=== PATIENT | female | born 1950 | race African-American/Black ===

== ENCOUNTER 2016-12-25 09:49 | Inpatient (IN) | payer OTHER ==
[2016-12-25] MEDS ORDERED: ONDANSETRON 4 MG/2 ML VIAL IVPUSH ONE (10:29)
[2016-12-25] MEDS ORDERED: morphine CARPU-JECT 2 MG/1 ML DISP.SYRIN IVPUSH ONE ×2 (10:29→16:48)
--- NOTE | 2016-12-25 10:38 | PDOC ---
History of Present Illness - General Chief Complaint: Pain, Acute Stated Complaint: ABDOMINAL PAIN Time Seen by Provider: 12/25/16 09:59 History Source: Patient Exam Limitations: No Limitations - History of Present Illness Travel History: No Initial Comments: 12/25/16 10:31 66-year-old female presents the ED with worsening periumbilical pain which she describes a pressure with cramping associated with diarrhea without nausea vomiting fever or chills. Patient denies history of GI disorders such as diverticulitis, IBS or colitis. Patient denies recent travel, recent change in diet, recent change in medications. Patient has no urinary complaints this time. Patient has no complaints of chest pain or shortness of breath. Timing/Duration: reports: getting worse Quality: reports: moderate, cramping, stabbing Abdominal Pain Onset Location: reports: periumbilical Pain Radiation: reports: no radiation Activities at Onset: reports: none Aggravating Factors: improves with: None Alleviating Factors: improves with: None Past History - Travel Traveled outside of the country in the last 30 days: No Close contact w/someone who was outside of country & ill: No - Past Medical History Allergies/Adverse Reactions: Allergies Allergy/AdvReac Type Severity Reaction Status Date / Time Penicillins Allergy Verified 12/25/16 09:59 strawberry Allergy Verified 12/25/16 09:59 tomato Allergy Verified 12/25/16 09:59 Home Medications: Ambulatory Orders Aclidinium [place] [Tudorza -] 1 inh PO BID 04/29/15 Albuterol Sulfate Inhaler - [Ventolin Hfa Inhaler -] 1 - 2 inh PO QID PRN Celecoxib 200 mg PO DAILY 04/29/15 Escitalopram Oxalate [Lexapro -] 10 mg PO DAILY 04/29/15 Gabapentin 600 mg PO TID 04/29/15 Loratadine 10 mg PO DAILY 04/29/15 Oxycodone HCl/Acetaminophen [Percocet 5/325 -] 1 tab PO Q8H PRN 04/29/15 Quetiapine Fumarate "Xr" [Seroquel Xr -] 50 mg PO DAILY 04/29/15 Roflumilast [Daliresp] 500 mcg PO DAILY 04/29/15 Budesonide/Formeterol Fumarate [SYMBICORT 80/4.5mcg -] 1 inh PO BID 12/25/16 Duloxetine HCl 30 mg PO HS 12/25/16 Fluticasone/Vilanterol [Breo Ellipta 100-25 Mcg INH] 1 each IH DAILY 12/25/16 Hydrochlorothiazide 25 mg PO AM 12/25/16 Anemia: Yes Asthma: Yes Cancer: Yes (right breast) COPD: Yes HTN: Yes Suicide Attempt (Hx): No - Psycho/Social/Smoking Cessation Hx Anxiety: No Suicidal Ideation: No Smoking Status: Yes Smoking History: Current every day smoker Have you smoked in the past 12 months: Yes Number of Cigarettes Smoked Daily: 20 Information on smoking cessation initiated: No 'Breaking Loose' booklet given: 04/29/15 Hx Alcohol Use: No Drug/Substance Use Hx: No Substance Use Type: None Hx Substance Use Treatment: No Patient Lives Alone: No 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 No: Constipated : No: Symptoms Reported Musculoskeletal: No: Symptoms Reported Integumentary: No: Symptoms Reported Neurological: No: Symptoms reported *Physical Exam - Vital Signs Last Vital Signs Temp Pulse Resp BP Pulse Ox 97.7 F 91 H 24 111/64 100 12/25/16 10:02 12/25/16 10:02 12/25/16 10:02 12/25/16 10:02 12/25/16 10:02 - Physical Exam General Appearance: Yes: Nourished, Appropriately Dressed. No: Apparent Distress HEENT: negative: Pale Conjunctivae Respiratory/Chest: positive: Lungs Clear, Normal Breath Sounds. negative: Respiratory Distress, Accessory Muscle Use Cardiovascular: positive: Regular Rhythm, Regular Rate. negative: Murmur Gastrointestinal/Abdominal: positive: Normal Bowel Sounds, Soft, Guarding, Tenderness (periumbilical and epigastric). negative: Distended, Rebound, Mass Extremity: positive: Normal Capillary Refill. negative: Pedal Edema Integumentary: positive: Normal Color, Warm, Moist Neurologic: positive: Normal Mood/Affect, Motor Strength 5/5 ED Treatment Course - LABORATORY CBC & Chemistry Diagram: 12/25/16 10:40 12/25/16 10:40 - RADIOLOGY Radiology Studies Ordered: Category Date Time Status ABDOMEN & PELVIS CT W/O CONTR [CT] Stat CT Scan 12/25/16 10:29 Ordered Medical Decision Making - Medical Decision Making 12/25/16 10:45 Patient worsening periumbilical pain and was tender to the epigastric and periumbilical region with mild right upper quadrant tenderness. Patient ordered for labs, urine, EKG, CAT scan, Antiemetics and analgesics. Patient concerning for diverticulitis or inflammatory/infectious process. 12/25/16 11:17 Laboratory Tests 12/25/16 12/25/16 12/25/16 10:40 10:40 10:40 WBC 17.1 H D Hgb 13.4 D Hct 39.1 Neutrophils % 44.8 Lymphocytes % 46.7 H Sodium 138 Potassium 3.2 L BUN 11 D Creatinine 1.2 H Urine pH 8.5 H Urine Protein Trace H Urine Urobilinogen >=8.0 e.u./dl H 12/25/16 11:41 Patient ordered for second lactic acid, IV fluid bolus, potassium replacement IV , Levaquin and Flagyl IV. Patient in for abdominal CT. Patient states feeling better after receiving pain mso4. 12/25/16 16:50 No evidence of diverticulitis or colitis noted. There is a possible not definitively ill-defined hypodense region in the left lobe of the liver versus artifact which can be evaluated by sonogram. Patient meets criteria for sepsis and will be admitted. Call placed to Dr. Coleman 12/25/16 16:[address] Hammer who will accept patient to [facility] inpatient. *DC/Admit/Observation/Transfer Diagnosis at time of Disposition: Hypokalemia Sepsis Qualifiers: Sepsis type: sepsis due to unspecified organism Qualified Code(s): A41.9 - Sepsis, unspecified organism Abdominal pain Qualifiers: Abdominal location: periumbilical Qualified Code(s): R10.33 - Periumbilical pain - Discharge Dispostion Admit: Yes
[2016-12-25] MEDS ORDERED: morphine CARPU-JECT 10 MG/1 ML DISP.SYRIN ONE ×2 (10:45→16:58)
[2016-12-25 10:52] LABS: PH,URINE 8.5 (5.0-8.0); URINE APPEARANCE CLEAR; URINE BILIRUBIN NEGATIVE (NEGATIVE); URINE BLOOD NEGATIVE (NEGATIVE); URINE COLOR YELLOW; URINE GLUCOSE (UA) NEGATIVE (NEGATIVE); URINE KETONE NEGATIVE (NEGATIVE); URINE LEUK ESTERASE NEGATIVE (NEGATIVE); URINE NITRITE NEGATIVE (NEGATIVE); URINE PROTEIN TRACE (NEGATIVE); URINE UROBILINOGEN >=8.0 E.U./dl mg/dL (0.2-1.0)
[2016-12-25 10:53] LABS: BASOPHIL 0.9 % (0-2.0); EOSINOPHIL 1.6 % (0-4.5); MCH 32.1 pg (25.7-33.7); MCHC 34.1 g/dl (32.0-36.0); MEAN CELL VOLUME 94.2 fl (80-96); NEUTROPHILS 44.8 % (42.8-82.8); PLATELET COUNT 299 K/MM3 (134-434); RDW 15.2 % (11.6-15.6); WHITE BLOOD COUNT 17.1 K/mm3 (4.0-10.0)
[2016-12-25 11:10] LABS: ALBUMIN 3.2 g/dl (3.4-5.0); ANION GAP 9 (8-16); CO2 28 mmol/L (21-32); CREATININE 1.2 mg/dL (0.55-1.02); GLUCOSE,RANDOM 104 mg/dL (74-106); SGOT/AST 23 U/L (15-37); SGPT/ALT 21 U/L (12-78)
[2016-12-25 11:12] LABS: ALK PHOS 110 U/L (45-117); BILIRUBIN,TOTAL 0.6 mg/dL (0.2-1.0); TOT PROT 7.6 g/dl (6.4-8.2)
[2016-12-25] MEDS ORDERED: SODIUM CHLORIDE 1,000 ML IV STA (11:26)
[2016-12-25] MEDS ORDERED: METRONIDAZOLE 500 MG PREMIXED 100 ML IVPB ONE ×2 (11:28→11:32)
[2016-12-25] MEDS ORDERED: LEVOFLOXACIN 750 MG IVPB 150 ML IVPB ONE ×2 (11:28→11:32)
[2016-12-25] MEDS ORDERED: KCL 10 MEQ IVPB 200 ML IVPB ONE (11:29)
[2016-12-25] MEDS: KCL 10 MEQ IVPB 100 ML IVPB SCH ×2 (11:45→14:47)
--- NOTE | 2016-12-25 17:19 | EKG ---
Test Reason : Blood Pressure : / mmHG Vent. Rate : 094 BPM Atrial Rate : 094 BPM P-R Int : 148 ms QRS Dur : 096 ms QT Int : 394 ms P-R-T Axes : 074 007 032 degrees QTc Int : 492 ms NORMAL SINUS RHYTHM NONSPECIFIC T WAVE ABNORMALITY PROLONGED QT ABNORMAL ECG WHEN COMPARED WITH ECG OF 20-SEP-2014 09:20, NO SIGNIFICANT CHANGE WAS FOUND Confirmed by NIKKI PEDRAZA MD ([id number]) on 12/25/2016 5:18:59 PM Referred By: Confirmed By:NIKKI PEDRAZA MD
[2016-12-25 22:53] VITALS: BMI 49.0
[2016-12-26] MEDS ORDERED: ONDANSETRON 4 MG/2 ML VIAL IVPB PRN (02:06)
[2016-12-26] MEDS ORDERED: morphine CARPU-JECT 4 MG/1 ML DISP.SYRIN IVPB PRN (02:07)
[2016-12-26] MEDS ORDERED: morphine CARPU-JECT 2 MG/1 ML DISP.SYRIN IVPB PRN (02:10)
[2016-12-26] MEDS: DEXTROSE 5%-0.45% SALINE 1,000 ML IV SCH ×2 (02:35→20:50)
[2016-12-26] MEDS: GABAPENTIN 300 MG CAPSULE (FP) PO SCH ×3 (06:51→21:58)
[2016-12-26] MEDS: HYDROCHLOROTHIAZIDE 25 MG TABLET (FP) PO SCH (06:51)
[2016-12-26 07:36] LABS: BASOPHIL 0.7 % (0-2.0); EOSINOPHIL 2.7 % (0-4.5); MCHC 33.7 g/dl (32.0-36.0); MEAN CELL VOLUME 94.7 fl (80-96); MEAN PLT VOLUME 7.6 fl (7.5-11.1); NEUTROPHILS 50.1 % (42.8-82.8); PLATELET COUNT 249 K/MM3 (134-434); RDW 14.8 % (11.6-15.6)
[2016-12-26 08:00] LABS: ALBUMIN 2.6 g/dl (3.4-5.0); ANION GAP 7 (8-16); BILIRUBIN,TOTAL 0.5 mg/dL (0.2-1.0); CALCIUM 9.1 mg/dL (8.5-10.1); CO2 29 mmol/L (21-32); CREATININE 1.1 mg/dL (0.55-1.02); GLUCOSE,RANDOM 113 mg/dL (74-106); SGOT/AST 21 U/L (15-37); SGPT/ALT 18 U/L (12-78); TOT PROT 6.3 g/dl (6.4-8.2)
[2016-12-26 08:01] LABS: ALK PHOS 90 U/L (45-117)
[2016-12-26] MEDS ORDERED: PT OWN MED DRAWER 7, Y5N ONE ×3 (08:54→20:41)
[2016-12-26] MEDS: morphine CARPU-JECT 4 MG/1 ML DISP.SYRIN IVPB PRN (09:50)
[2016-12-26] MEDS: HEPARIN NA (PORCINE) 5,000 UNITS/ML 1ML VIAL SQ SCH ×2 (09:51→21:58)
[2016-12-26] MEDS: LORATADINE 10 MG TABLET PO SCH (09:51)
[2016-12-26] MEDS: ACLIDINIUM BROMIDE 400 MCG/INH AERO.POWD IH SCH ×2 (10:15→21:59)
[2016-12-26] MEDS: METRONIDAZOLE 500 MG PREMIXED 100 ML IVPB SCH ×2 (10:16→20:49)
[2016-12-26] MEDS: BUDESONIDE/FORMETEROL FUMARATE 80/4.5 mcg INHALER IH SCH ×2 (11:15→21:59)
[2016-12-26] MEDS: LEVOFLOXACIN 500 MG IVPB 100 ML IVPB SCH (11:16)
--- NOTE | 2016-12-26 14:02 | CONSULT ---
Consult Consult Specialty:: infectious diseases Referred by:: Reason for Consultation:: uti - History of Present Illness Chief Complaint: abd pain and rt flank pain History of Present Illness: 66-year-old female presents the ED with worsening periumbilical pain which she describes a pressure with cramping associated with diarrhea without nausea vomiting fever or chills. 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 Pulmonary: Yes: Asthma, COPD, Other (Emphysema) ...: No - Past Surgical History Past Surgical History: Yes: Hysterectomy, Mastectomy - Alcohol/Substance Use Hx Alcohol Use: No History of Substance Use: reports: None - Smoking History Smoking history: Current every day smoker Have you smoked in the past 12 months: Yes Aproximately how many cigarettes per day: 20 - Social History ADL: Independent Occupation: Disabled History of Recent Travel: No Home Medications - Allergies Allergies/Adverse Reactions: Allergies Allergy/AdvReac Type Severity Reaction Status Date / Time Penicillins Allergy Verified 12/25/16 09:59 strawberry Allergy Verified 12/25/16 09:59 tomato Allergy Verified 12/25/16 09:59 - Home Medications Home Medications: Ambulatory Orders Aclidinium [place] [Tudorza -] 1 inh PO BID 04/29/15 Albuterol Sulfate Inhaler - [Ventolin Hfa Inhaler -] 1 - 2 inh PO QID PRN Celecoxib 200 mg PO DAILY 04/29/15 Escitalopram Oxalate [Lexapro -] 10 mg PO DAILY 04/29/15 Gabapentin 600 mg PO TID 04/29/15 Loratadine 10 mg PO DAILY 04/29/15 Oxycodone HCl/Acetaminophen [Percocet 5/325 -] 1 tab PO Q8H PRN 04/29/15 Quetiapine Fumarate "Xr" [Seroquel Xr -] 50 mg PO DAILY 04/29/15 Roflumilast [Daliresp] 500 mcg PO DAILY 04/29/15 Budesonide/Formeterol Fumarate [SYMBICORT 80/4.5mcg -] 1 inh PO BID 12/25/16 Duloxetine HCl 30 mg PO HS 12/25/16 Fluticasone/Vilanterol [Breo Ellipta 100-25 Mcg INH] 1 each IH DAILY 12/25/16 Hydrochlorothiazide 25 mg PO AM 12/25/16 Family Disease History - Family Disease History Family Disease History: Heart Disease: Mother (HTN, CVA age 78) Review of Systems - Review of Systems Constitutional: reports: No Symptoms Eyes: reports: No Symptoms HENT: reports: No Symptoms Neck: reports: No Symptoms Cardiovascular: reports: No Symptoms Respiratory: reports: No Symptoms Gastrointestinal: reports: Abdominal Pain Genitourinary: reports: No Symptoms Integumentary: reports: No Symptoms Neurological: reports: No Symptoms Endocrine: reports: No Symptoms Hematology/Lymphatic: reports: No Symptoms Psychiatric: reports: No Symptoms Physical Exam Vital Signs: Vital Signs Temperature 97.9 F 12/26/16 10:00 Pulse Rate 85 12/26/16 10:00 Respiratory Rate 20 12/26/16 10:00 Blood Pressure 113/70 12/26/16 10:00 O2 Sat by Pulse Oximetry (%) 98 12/26/16 10:00 Constitutional: Yes: Well Nourished, Calm, Obese (morbid obesity) Eyes: Yes: Conjunctiva Clear HENT: Yes: Atraumatic, Normocephalic Neck: Yes: Supple Cardiovascular: Yes: Regular Rate and Rhythm Respiratory: Yes: Regular, Poor Air Entry (bases) Gastrointestinal: Yes: Normal Bowel Sounds, Soft, Tenderness (epigastric region) Musculoskeletal: Yes: WNL Extremities: Yes: WNL Neurological: Yes: Alert, Oriented Psychiatric: Yes: Alert, Oriented Labs: CBC, BMP 12/26/16 06:00 12/26/16 06:00 Imaging - Results Cat Scan: Report Reviewed, Image Reviewed Assessment/Plan after looking at the ct scan there is some shadow in the liver patients work up also shows uti patient has pain on the right side chances could be something like collection looking at the picture i am going to order sonogram of the abdomen uti abd pain obesity plan u/s of the abd will start on ceftriaxone
[2016-12-26] MEDS ORDERED: CEFTRIAXONE 1 GM in DEXTROSE 5%-WATER - 50 ML IVPB SCH (14:15)
--- NOTE | 2016-12-26 15:10 | CON.GI ---
Consult Consult Specialty:: gastroenterology - History of Present Illness History of Present Illness: 66y/o F with PMH of morbid obesity, cervical and brest cancer was admitted because of epigastric pain, diarrhea,leukocytosis nausea and vomitng. Diarrhea started 1 year ago, no travel history, no recent antibiotic use, non bloody associated with crampy abdominal pain. Urinalysis is normal. Catscan was reviewed, she was noted to have a dilated gallbladder otherwise was normal. 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 Pulmonary: Yes: Asthma, COPD, Other (Emphysema) ...: No - Past Surgical History Past Surgical History: Yes: Hysterectomy, Mastectomy - Alcohol/Substance Use Hx Alcohol Use: No History of Substance Use: reports: None - Smoking History Smoking history: Current every day smoker Have you smoked in the past 12 months: Yes Aproximately how many cigarettes per day: 20 - Social History ADL: Independent Occupation: Disabled History of Recent Travel: No Home Medications - Allergies Allergies/Adverse Reactions: Allergies Allergy/AdvReac Type Severity Reaction Status Date / Time Penicillins Allergy Verified 12/25/16 09:59 strawberry Allergy Verified 12/25/16 09:59 tomato Allergy Verified 12/25/16 09:59 - Home Medications Home Medications: Ambulatory Orders Aclidinium [place] [Tudorza -] 1 inh PO BID 04/29/15 Albuterol Sulfate Inhaler - [Ventolin Hfa Inhaler -] 1 - 2 inh PO QID PRN Celecoxib 200 mg PO DAILY 04/29/15 Escitalopram Oxalate [Lexapro -] 10 mg PO DAILY 04/29/15 Gabapentin 600 mg PO TID 04/29/15 Loratadine 10 mg PO DAILY 04/29/15 Oxycodone HCl/Acetaminophen [Percocet 5/325 -] 1 tab PO Q8H PRN 04/29/15 Quetiapine Fumarate "Xr" [Seroquel Xr -] 50 mg PO DAILY 04/29/15 Roflumilast [Daliresp] 500 mcg PO DAILY 04/29/15 Budesonide/Formeterol Fumarate [SYMBICORT 80/4.5mcg -] 1 inh PO BID 12/25/16 Duloxetine HCl 30 mg PO HS 12/25/16 Fluticasone/Vilanterol [Breo Ellipta 100-25 Mcg INH] 1 each IH DAILY 12/25/16 Hydrochlorothiazide 25 mg PO AM 12/25/16 Family Disease History - Family Disease History Family History: Denies (colon and gastric cancer) Family Disease History: Heart Disease: Mother (HTN, CVA age 78) Review of Systems - Review of Systems Constitutional: denies: Loss of Appetite Eyes: denies: Blurred Vision HENT: reports: Difficult Swallowing Neck: denies: Decreased ROM, Tenderness Respiratory: denies: SOB, SOB on Exertion Gastrointestinal: reports: Abdominal Pain (--epigastric), Diarrhea, Nausea, Vomiting. denies: Constipation, Dysphagia, Indigestion, Melena, Vomiting Blood Physical Exam-GI Vital Signs: Vital Signs Temperature 97.9 F 12/26/16 14:10 Pulse Rate 87 12/26/16 14:10 Respiratory Rate 20 12/26/16 14:10 Blood Pressure 121/73 12/26/16 14:10 O2 Sat by Pulse Oximetry (%) 98 12/26/16 10:00 Constitutional: Yes: Obese Eyes: Yes: Conjunctiva Clear HENT: Yes: Atraumatic Neck: Yes: Supple Cardiovascular: Yes: Regular Rate and Rhythm Respiratory: Yes: CTA Bilaterally Gastrointestinal Inspection: Yes: Distention ...Auscultate: Yes: Normoactive Bowel Sounds ...Palpate: Yes: Soft, Tenderness, Epigastium. No: Firm/Rigid, Guarding, Hepatomegaly, Mass, Pulsatile Mass, Splenomegaly, Tenderness ...Percussion: Yes: Tympanitic Labs: CBC, BMP 12/26/16 06:00 12/26/16 06:00 Home Medications Medication Instructions Recorded Aclidinium [place] [Tudorza -] 1 inh PO BID 04/29/15 Albuterol Sulfate Inhaler - 1 - 2 inh PO QID PRN 04/29/15 [Ventolin Hfa Inhaler -] Celecoxib 200 mg PO DAILY 04/29/15 Escitalopram Oxalate [Lexapro -] 10 mg PO DAILY 04/29/15 Gabapentin 600 mg PO TID 04/29/15 Loratadine 10 mg PO DAILY 04/29/15 Oxycodone HCl/Acetaminophen 1 tab PO Q8H PRN 04/29/15 [Percocet 5/325 -] Quetiapine Fumarate "Xr" [Seroquel 50 mg PO DAILY 04/29/15 Xr -] Roflumilast [Daliresp] 500 mcg PO DAILY 04/29/15 Budesonide/Formeterol Fumarate 1 inh PO BID 12/25/16 [SYMBICORT 80/4.5mcg -] Duloxetine HCl 30 mg PO HS 12/25/16 Fluticasone/Vilanterol [Breo 1 each IH DAILY 12/25/16 Ellipta 100-25 Mcg INH] Hydrochlorothiazide 25 mg PO AM 12/25/16 Problem List - Problems (1) Epigastric abdominal pain Assessment/Plan: r/o Pepetic ulcer disease secondary to NSAID use vs cholecystitis R>IV Protonix and Reglan HIDA scan continue antibiotics EGD as an out patient, she was made aware to follow-up Code(s): R10.13 - EPIGASTRIC PAIN (2) Diarrhea Assessment/Plan: possibly infectious R> stool analysis colonoscopy as an outpatient, she was made aware to follow-up Code(s): R19.7 - DIARRHEA, UNSPECIFIED
--- NOTE | 2016-12-26 16:02 | HP ---
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 Pulmonary: Yes: Asthma, COPD, Other (Emphysema) ...: No - Past Surgical History Past Surgical History: Yes: Hysterectomy, Mastectomy - Smoking History Smoking history: Current every day smoker Have you smoked in the past 12 months: Yes Aproximately how many cigarettes per day: 20 - Alcohol/Substance Use Hx Alcohol Use: No History of Substance Use: reports: None - Social History ADL: Independent Occupation: Disabled History of Recent Travel: No Home Medications - Allergies Allergies/Adverse Reactions: Allergies Allergy/AdvReac Type Severity Reaction Status Date / Time Penicillins Allergy Verified 12/25/16 09:59 strawberry Allergy Verified 12/25/16 09:59 tomato Allergy Verified 12/25/16 09:59 - Home Medications Home Medications: Ambulatory Orders Aclidinium [place] [Tudorza -] 1 inh PO BID 04/29/15 Albuterol Sulfate Inhaler - [Ventolin Hfa Inhaler -] 1 - 2 inh PO QID PRN Celecoxib 200 mg PO DAILY 04/29/15 Escitalopram Oxalate [Lexapro -] 10 mg PO DAILY 04/29/15 Gabapentin 600 mg PO TID 04/29/15 Loratadine 10 mg PO DAILY 04/29/15 Oxycodone HCl/Acetaminophen [Percocet 5/325 -] 1 tab PO Q8H PRN 04/29/15 Quetiapine Fumarate "Xr" [Seroquel Xr -] 50 mg PO DAILY 04/29/15 Roflumilast [Daliresp] 500 mcg PO DAILY 04/29/15 Budesonide/Formeterol Fumarate [SYMBICORT 80/4.5mcg -] 1 inh PO BID 12/25/16 Duloxetine HCl 30 mg PO HS 12/25/16 Fluticasone/Vilanterol [Breo Ellipta 100-25 Mcg INH] 1 each IH DAILY 12/25/16 Hydrochlorothiazide 25 mg PO AM 12/25/16 Family Disease History - Family Disease History Family Disease History: Heart Disease: Mother (HTN, CVA age 78) Physical Examination Vital Signs: Vital Signs Temperature 97.9 F 12/26/16 14:10 Pulse Rate 87 12/26/16 14:10 Respiratory Rate 20 12/26/16 14:10 Blood Pressure 121/73 12/26/16 14:10 O2 Sat by Pulse Oximetry (%) 98 12/26/16 10:00 Labs: CBC, BMP 12/26/16 06:00 12/26/16 06:00
[2016-12-26] MEDS: METOCLOPRAMIDE HCL INJECTION 10 MG/2 ML VIAL IVPB SCH (17:49)
[2016-12-26] MEDS: AZTREONAM 1 GM in DEXTROSE 5%-WATER - 50 ML IVPB SCH (18:21)
[2016-12-26] MEDS ORDERED: PANTOPRAZOLE SODIUM 40 MG VIAL ONE (20:41)
[2016-12-26] MEDS ORDERED: SODIUM CHLORIDE 100 ML IVPB ONE (20:41)
[2016-12-26] MEDS ORDERED: CYCLOBENZAPRINE HCL 10 MG TABLET (FP) PO PRN (21:40)
[2016-12-26] MEDS: DULoxetine HCL 30 MG CAPSULE.DR (FP) PO SCH (21:58)
[2016-12-26] MEDS: PANTOPRAZOLE SODIUM 40 MG in SODIUM CHLORIDE 100 ML IVPB SCH (21:59)
[2016-12-26] MEDS ORDERED: NAPROXEN 500 MG TABLET (FP) PO PRN (22:00)
[2016-12-27] MEDS: METOCLOPRAMIDE HCL INJECTION 10 MG/2 ML VIAL IVPB SCH ×4 (00:42→23:49)
[2016-12-27 08:24] LABS: BASOPHIL 1.2 % (0-2.0); EOSINOPHIL 2.5 % (0-4.5); MCH 31.9 pg (25.7-33.7); MCHC 33.7 g/dl (32.0-36.0); MEAN CELL VOLUME 94.6 fl (80-96); MEAN PLT VOLUME 7.5 fl (7.5-11.1); NEUTROPHILS 43.7 % (42.8-82.8); PLATELET COUNT 251 K/MM3 (134-434); WHITE BLOOD COUNT 10.4 K/mm3 (4.0-10.0)
[2016-12-27] MEDS: morphine CARPU-JECT 4 MG/1 ML DISP.SYRIN IVPB PRN ×2 (08:52→20:51)
[2016-12-27 09:22] LABS: ALBUMIN 2.8 g/dl (3.4-5.0); ALK PHOS 87 U/L (45-117); ANION GAP 10 (8-16); BILIRUBIN,TOTAL 0.7 mg/dL (0.2-1.0); CALCIUM 9.4 mg/dL (8.5-10.1); CO2 28 mmol/L (21-32); CREATININE 1.2 mg/dL (0.55-1.02); GLUCOSE,RANDOM 110 mg/dL (74-106); SGOT/AST 28 U/L (15-37); SGPT/ALT 19 U/L (12-78); TOT PROT 6.6 g/dl (6.4-8.2)
[2016-12-27] MEDS ORDERED: SODIUM CHLORIDE 100 ML IVPB ONE ×2 (09:36→23:03)
[2016-12-27] MEDS ORDERED: PANTOPRAZOLE SODIUM 40 MG VIAL ONE ×2 (09:36→23:03)
[2016-12-27] MEDS: AZTREONAM 1 GM in DEXTROSE 5%-WATER - 50 ML IVPB SCH ×2 (09:50→21:10)
[2016-12-27] MEDS: METRONIDAZOLE 500 MG PREMIXED 100 ML IVPB SCH ×2 (12:40→19:48)
[2016-12-27] MEDS: HEPARIN NA (PORCINE) 5,000 UNITS/ML 1ML VIAL SQ SCH ×2 (12:54→21:14)
[2016-12-27] MEDS: LORATADINE 10 MG TABLET PO SCH (12:54)
[2016-12-27] MEDS: BUDESONIDE/FORMETEROL FUMARATE 80/4.5 mcg INHALER IH SCH ×2 (12:55→21:18)
[2016-12-27] MEDS: ACLIDINIUM BROMIDE 400 MCG/INH AERO.POWD IH SCH ×2 (12:58→21:15)
--- NOTE | 2016-12-27 15:41 | PN ---
Progress Note, Physician History of Present Illness: feels better had imaging studies done currently feels better - Current Medication List Current Medications: Active Medications Aclidinium [place] (Tudorza -) 1 puff IH BID [facility] Last Admin: 12/27/16 12:58 Dose: 1 puff Budesonide/Formoterol Fumarate (Symbicort 80/4.5mcg -) 1 puff IH BID [facility] Last Admin: 12/27/16 12:55 Dose: Not Given Cyclobenzaprine HCl (Flexeril -) 10 mg PO Q8H PRN Last Admin: 12/26/16 21:56 Dose: 10 mg Duloxetine HCl (Cymbalta -) 30 mg PO HS [facility] Last Admin: 12/26/16 21:58 Dose: Not Given Gabapentin (Neurontin -) 600 mg PO TID [facility] Last Admin: 12/26/16 21:58 Dose: 600 mg Heparin Sodium (Porcine) (Heparin -) 5,000 unit SQ BID [facility] Last Admin: 12/27/16 12:54 Dose: 5,000 unit Hydrochlorothiazide (Hctz -) 25 mg PO AM [facility] Last Admin: 12/26/16 06:51 Dose: 25 mg Dextrose/Sodium Chloride (D5-1/2ns -) 1,000 mls @ 75 mls/hr IV ASDIR [facility] Last Admin: 12/26/16 20:50 Dose: 75 mls/hr Metronidazole (Flagyl 500mg Premixed Ivpb -) 100 mls @ 100 mls/hr IVPB Q8H-IV [facility] Last Admin: 12/27/16 12:40 Dose: 100 mls/hr Levofloxacin (Levaquin 500 Mg Premixed Ivpb -) 100 mls @ 100 mls/hr IVPB DAILY [facility] Last Admin: 12/26/16 11:16 Dose: 100 mls/hr Pantoprazole Sodium 40 mg/ (Sodium Chloride) 100 mls @ 200 mls/hr IVPB BID [facility] Last Admin: 12/26/16 21:59 Dose: 200 mls/hr Aztreonam 1 gm/ Dextrose 50 mls @ 100 mls/hr IVPB Q8H-IV [facility] Last Admin: 12/26/16 18:21 Dose: 100 mls/hr Loratadine (Claritin -) 10 mg PO DAILY [facility] Last Admin: 12/27/16 12:54 Dose: 10 mg Metoclopramide HCl (Reglan Injection -) 10 mg IVPB Q8H [facility] Last Admin: 12/27/16 15:16 Dose: Not Given Morphine Sulfate (Morphine Injection -) 4 mg IVPB Q6H PRN Last Admin: 12/27/16 08:52 Dose: 4 mg Ondansetron HCl (Zofran Injection) 4 mg IVPB Q6H PRN PRN Reason: NAUSEA Quetiapine Fumarate (Seroquel Xr -) 50 mg PO DAILY [facility] Last Admin: 12/27/16 12:55 Dose: Not Given - Objective Vital Signs: Vital Signs Temperature 98.3 F 12/27/16 13:28 Pulse Rate 102 H 12/27/16 13:28 Respiratory Rate 20 12/27/16 13:28 Blood Pressure 134/81 12/27/16 13:28 O2 Sat by Pulse Oximetry (%) 95 12/27/16 10:00 Constitutional: Yes: No Distress, Calm, Obese Respiratory: Yes: Regular, CTA Bilaterally Gastrointestinal: Yes: Normal Bowel Sounds, Soft Musculoskeletal: Yes: WNL Extremities: Yes: WNL Neurological: Yes: Alert, Oriented Psychiatric: Yes: Alert, Oriented Labs: CBC, BMP 12/27/16 08:00 12/27/16 08:00 Assessment/Plan uti abd pain obesity plan continue current mgmt rest as per priamry team
[2016-12-27] MEDS ORDERED: POTASSIUM CHLORIDE TABS 20 MEQ TABLET.ER (FP) PO ONE (18:18)
[2016-12-27] MEDS: LEVOFLOXACIN 500 MG IVPB 100 ML IVPB SCH (19:41)
[2016-12-27] MEDS: PANTOPRAZOLE SODIUM 40 MG in SODIUM CHLORIDE 100 ML IVPB SCH ×2 (19:49→23:09)
[2016-12-27] MEDS: GABAPENTIN 300 MG CAPSULE (FP) PO SCH ×2 (19:51→21:14)
[2016-12-27] MEDS ORDERED: PT OWN MED DRAWER 7, Y5N ONE ×3 (19:52→20:41)
[2016-12-27] MEDS: DULoxetine HCL 30 MG CAPSULE.DR (FP) PO SCH (21:18)
--- NOTE | 2016-12-27 23:39 | PN ---
Progress Note, Physician - Current Medication List Current Medications: Active Medications Aclidinium [place] (Tudorza -) 1 puff IH BID [facility] Last Admin: 12/27/16 21:15 Dose: 1 puff Budesonide/Formoterol Fumarate (Symbicort 80/4.5mcg -) 1 puff IH BID [facility] Last Admin: 12/27/16 21:18 Dose: Not Given Cyclobenzaprine HCl (Flexeril -) 10 mg PO Q8H PRN Last Admin: 12/26/16 21:56 Dose: 10 mg Duloxetine HCl (Cymbalta -) 30 mg PO HS [facility] Last Admin: 12/27/16 21:18 Dose: Not Given Gabapentin (Neurontin -) 600 mg PO TID [facility] Last Admin: 12/27/16 21:14 Dose: 600 mg Heparin Sodium (Porcine) (Heparin -) 5,000 unit SQ BID [facility] Last Admin: 12/27/16 21:14 Dose: 5,000 unit Hydrochlorothiazide (Hctz -) 25 mg PO AM [facility] Last Admin: 12/26/16 06:51 Dose: 25 mg Dextrose/Sodium Chloride (D5-1/2ns -) 1,000 mls @ 75 mls/hr IV ASDIR [facility] Last Admin: 12/26/16 20:50 Dose: 75 mls/hr Metronidazole (Flagyl 500mg Premixed Ivpb -) 100 mls @ 100 mls/hr IVPB Q8H-IV [facility] Last Admin: 12/27/16 19:48 Dose: Not Given Levofloxacin (Levaquin 500 Mg Premixed Ivpb -) 100 mls @ 100 mls/hr IVPB DAILY [facility] Last Admin: 12/27/16 19:41 Dose: 100 mls/hr Pantoprazole Sodium 40 mg/ (Sodium Chloride) 100 mls @ 200 mls/hr IVPB BID [facility] Last Admin: 12/27/16 23:09 Dose: 200 mls/hr Aztreonam 1 gm/ Dextrose 50 mls @ 100 mls/hr IVPB Q8H-IV [facility] Last Admin: 12/27/16 21:10 Dose: 100 mls/hr Loratadine (Claritin -) 10 mg PO DAILY [facility] Last Admin: 12/27/16 12:54 Dose: 10 mg Metoclopramide HCl (Reglan Injection -) 10 mg IVPB Q8H [facility] Last Admin: 12/27/16 15:16 Dose: Not Given Morphine Sulfate (Morphine Injection -) 4 mg IVPB Q6H PRN Last Admin: 12/27/16 20:51 Dose: 4 mg Ondansetron HCl (Zofran Injection) 4 mg IVPB Q6H PRN PRN Reason: NAUSEA Quetiapine Fumarate (Seroquel Xr -) 50 mg PO DAILY [facility] Last Admin: 12/27/16 12:55 Dose: Not Given - Objective Vital Signs: Vital Signs Temperature 98.0 F 12/27/16 18:02 Pulse Rate 107 H 12/27/16 18:02 Respiratory Rate 18 12/27/16 18:02 Blood Pressure 110/78 12/27/16 18:02 O2 Sat by Pulse Oximetry (%) 95 12/27/16 10:00 Constitutional: Yes: Well Nourished Neck: Yes: WNL, Supple Cardiovascular: Yes: WNL, Regular Rate and Rhythm Respiratory: Yes: Diminished Gastrointestinal: Yes: Normal Bowel Sounds, Soft, Abdomen, Obese Labs: CBC, BMP 12/27/16 08:00 12/27/16 08:00 Problem List - Problems (1) Sepsis Assessment/Plan: Cont IV azactam/levaquin/flagyl Monitor cultures Urine culture (+) for proteus As per ID WBC normal Code(s): A41.9 - SEPSIS, UNSPECIFIED ORGANISM Qualifiers: Sepsis type: sepsis due to unspecified organism Qualified Code(s): A41.9 - Sepsis, unspecified organism (2) Shoulder pain Assessment/Plan: ?xray shoulder showed rotator cuff tear Ortho consult PT eval ?STR on dc Code(s): M25.519 - PAIN IN UNSPECIFIED SHOULDER (3) Hip pain Assessment/Plan: ?AVN on xray Ortho consult Code(s): M25.559 - PAIN IN UNSPECIFIED HIP (4) COPD (chronic obstructive pulmonary disease) Assessment/Plan: Cont inhalers Code(s): J44.9 - CHRONIC OBSTRUCTIVE PULMONARY DISEASE, UNSPECIFIED (5) Renal insufficiency Code(s): N28.9 - DISORDER OF KIDNEY AND URETER, UNSPECIFIED (6) HTN (hypertension) Assessment/Plan: BP stable Cont hctz Code(s): I10 - ESSENTIAL (PRIMARY) HYPERTENSION (7) Peripheral neuropathy Assessment/Plan: Cont neurontin/flexeril Code(s): G62.9 - POLYNEUROPATHY, UNSPECIFIED (8) Morbid obesity Code(s): E66.01 - MORBID (SEVERE) OBESITY DUE TO EXCESS CALORIES (9) Depression Code(s): F32.9 - MAJOR DEPRESSIVE DISORDER, SINGLE EPISODE, UNSPECIFIED
[2016-12-28] MEDS ORDERED: PT OWN MED DRAWER 7, Y5N ONE (01:48)
[2016-12-28] MEDS: AZTREONAM 1 GM in DEXTROSE 5%-WATER - 50 ML IVPB SCH ×4 (01:50→11:55)
[2016-12-28] MEDS: morphine CARPU-JECT 4 MG/1 ML DISP.SYRIN IVPB PRN (02:50)
[2016-12-28] MEDS: METRONIDAZOLE 500 MG PREMIXED 100 ML IVPB SCH ×2 (03:41→10:42)
[2016-12-28] MEDS: DEXTROSE 5%-0.45% SALINE 1,000 ML IV SCH ×2 (04:06→05:28)
[2016-12-28] MEDS: HYDROCHLOROTHIAZIDE 25 MG TABLET (FP) PO SCH (06:19)
[2016-12-28] MEDS: GABAPENTIN 300 MG CAPSULE (FP) PO SCH ×2 (06:19→14:55)
[2016-12-28] MEDS: METOCLOPRAMIDE HCL INJECTION 10 MG/2 ML VIAL IVPB SCH ×2 (08:55→14:56)
[2016-12-28] MEDS ORDERED: SODIUM CHLORIDE 100 ML IVPB ONE (09:11)
[2016-12-28] MEDS ORDERED: PANTOPRAZOLE SODIUM 40 MG VIAL ONE (09:11)
[2016-12-28] MEDS: LEVOFLOXACIN 500 MG IVPB 100 ML IVPB SCH (09:13)
[2016-12-28] MEDS: ACLIDINIUM BROMIDE 400 MCG/INH AERO.POWD IH SCH (09:15)
[2016-12-28] MEDS: HEPARIN NA (PORCINE) 5,000 UNITS/ML 1ML VIAL SQ SCH (09:16)
[2016-12-28] MEDS: LORATADINE 10 MG TABLET PO SCH (09:16)
[2016-12-28] MEDS: BUDESONIDE/FORMETEROL FUMARATE 80/4.5 mcg INHALER IH SCH (09:17)
[2016-12-28] MEDS: PANTOPRAZOLE SODIUM 40 MG in SODIUM CHLORIDE 100 ML IVPB SCH (12:39)
--- NOTE | 2016-12-28 14:59 | PN ---
Progress Note, Physician History of Present Illness: no new issues patient stable no issues - Current Medication List Current Medications: Active Medications Aclidinium [place] (Tudorza -) 1 puff IH BID [facility] Last Admin: 12/28/16 09:15 Dose: 1 puff Budesonide/Formoterol Fumarate (Symbicort 80/4.5mcg -) 1 puff IH BID [facility] Last Admin: 12/28/16 09:17 Dose: Not Given Cyclobenzaprine HCl (Flexeril -) 10 mg PO Q8H PRN Last Admin: 12/26/16 21:56 Dose: 10 mg Duloxetine HCl (Cymbalta -) 30 mg PO HS [facility] Last Admin: 12/27/16 21:18 Dose: Not Given Gabapentin (Neurontin -) 600 mg PO TID [facility] Last Admin: 12/28/16 06:19 Dose: 600 mg Heparin Sodium (Porcine) (Heparin -) 5,000 unit SQ BID [facility] Last Admin: 12/28/16 09:16 Dose: 5,000 unit Hydrochlorothiazide (Hctz -) 25 mg PO AM [facility] Last Admin: 12/28/16 06:19 Dose: 25 mg Dextrose/Sodium Chloride (D5-1/2ns -) 1,000 mls @ 75 mls/hr IV ASDIR [facility] Last Admin: 12/28/16 05:28 Dose: 75 mls/hr Metronidazole (Flagyl 500mg Premixed Ivpb -) 100 mls @ 100 mls/hr IVPB Q8H-IV [facility] Last Admin: 12/28/16 10:42 Dose: 100 mls/hr Levofloxacin (Levaquin 500 Mg Premixed Ivpb -) 100 mls @ 100 mls/hr IVPB DAILY [facility] Last Admin: 12/28/16 09:13 Dose: 100 mls/hr Pantoprazole Sodium 40 mg/ (Sodium Chloride) 100 mls @ 200 mls/hr IVPB BID [facility] Last Admin: 12/28/16 12:39 Dose: 200 mls/hr Aztreonam 1 gm/ Dextrose 50 mls @ 100 mls/hr IVPB Q8H-IV [facility] Last Admin: 12/28/16 11:55 Dose: 100 mls/hr Loratadine (Claritin -) 10 mg PO DAILY [facility] Last Admin: 12/28/16 09:16 Dose: 10 mg Metoclopramide HCl (Reglan Injection -) 10 mg IVPB Q8H [facility] Last Admin: 12/28/16 08:55 Dose: Not Given Morphine Sulfate (Morphine Injection -) 4 mg IVPB Q6H PRN Last Admin: 12/28/16 02:50 Dose: 4 mg Ondansetron HCl (Zofran Injection) 4 mg IVPB Q6H PRN PRN Reason: NAUSEA Quetiapine Fumarate (Seroquel Xr -) 50 mg PO DAILY [facility] Last Admin: 12/28/16 09:17 Dose: Not Given - Objective Vital Signs: Vital Signs Temperature 98.6 F 12/28/16 14:15 Pulse Rate 99 H 12/28/16 14:15 Respiratory Rate 20 12/28/16 14:15 Blood Pressure 112/65 12/28/16 14:15 O2 Sat by Pulse Oximetry (%) 96 12/28/16 10:00 Constitutional: Yes: No Distress, Calm, Obese Cardiovascular: Yes: Regular Rate and Rhythm Respiratory: Yes: Regular, CTA Bilaterally Gastrointestinal: Yes: Normal Bowel Sounds, Soft Musculoskeletal: Yes: WNL Extremities: Yes: WNL Neurological: Yes: Alert, Oriented Psychiatric: Yes: Alert, Oriented Labs: CBC, BMP 12/27/16 08:00 12/27/16 08:00 Assessment/Plan uti abd pain obesity plan cx result noted patient tolerating orally will change abx to oral give levaquin for another 3 days rest as per gi
[2016-12-28] MEDS ORDERED: LEVOFLOXACIN 750 MG TABLET PO SCH (15:15)
[2016-12-28] MEDS ORDERED: LEVOFLOXACIN 500 MG, LEVOFLOXACIN 250 MG PO SCH (15:30)
[2016-12-28 17:09] VITALS: BP 121/72; PULSE 108; TEMP 97.9
[2016-12-28] MEDS ORDERED: metroNIDAZOLE 250 MG TABLET PO SCH (22:00)
[2016-12-29] MEDS ORDERED: LEVOFLOXACIN 500 MG, LEVOFLOXACIN 250 MG PO SCH (06:00)
== END 2016-12-28 19:28 | disposition home health service (06) | DRG 690 ==
LOC: JER 09:49 → JERBED 16:54 → J7W 19:36
PROVIDERS: ADMIT Internal Medicine; ATTEND Internal Medicine
DX: N39.0 Urinary tract infection, site not specified (principal); Z68.42 Body mass index [BMI] 45.0-49.9, adult; B96.4 Proteus (mirabilis) (morganii) as the cause of diseases classified elsewhere; E87.6 Hypokalemia; J44.9 Chronic obstructive pulmonary disease, unspecified; F17.210 Nicotine dependence, cigarettes, uncomplicated; E66.01 Morbid (severe) obesity due to excess calories; G62.89 Other specified polyneuropathies; A08.8 Other specified intestinal infections; F32.9 Major depressive disorder, single episode, unspecified; K82.8 Other specified diseases of gallbladder; D64.9 Anemia, unspecified; R11.2 Nausea with vomiting, unspecified; M25.559 Pain in unspecified hip; M25.519 Pain in unspecified shoulder; D72.828 Other elevated white blood cell count; N28.9 Disorder of kidney and ureter, unspecified; I10 Essential (primary) hypertension; Z85.3 Personal history of malignant neoplasm of breast; Z85.41 Personal history of malignant neoplasm of cervix uteri
CPT/HCPCS: 36415; 73030-TC-LT; 73030-TC-RT; 73502-TC-LT; 73502-TC-RT; 74176-TC; 76705-TC; 76856-TC; 78227-TC; 80053; 81003; 83605; 83690; 85025; 87040; 87086; 87186; 93005; 93010; 97116-GP; 97162-GP; 99283-25; A9537; J1644

== ENCOUNTER 2017-01-15 11:36 | Emergency (ER) | payer OTHER ==
[2017-01-15 12:00] VITALS: BMI 54.8
--- NOTE | 2017-01-15 12:33 | PDOC ---
History of Present Illness - General History Source: Patient Exam Limitations: No Limitations - History of Present Illness Initial Comments: 01/15/17 13:02 The patient is a 66 year old female, with a significant past medical history of osteoarthritis, polyneuropathy, severe major depressive disorder, hypertension, COPD, and asthma, who presents to the emergency department complaining of diffuse body aches for approximately 1 day. The patient reports her pain began in her neck and now radiates into her joints, bones, and skin. Patient denies any associated fever, chills, cough, headache, or dizziness. Patient reports joint pain when the weather changes, which she takes gabapentin for, but has experienced no relief. Patient reports she was admitted on 12/25/16, and was diagnosed with sepsis, but the consulting ID doctor was unable to find a source of infection. Patient states she was started on levaquin and metronidazole, and she is still taking these medications. Patient reports she has had multiple episodes of diarrhea, and states she urinates with every diarrheal bowel movement. Patient reports she has been started on multiple courses of outpatient antibiotics for a UTI. Recently she was started on another course of ciprofloxacin and flagyl. She denies any abdominal pain, nausea, vomiting, or constipation. She denies any dysuria, hematuria, frequency, or urgency. Patient denies any chest pain, shortness of breath, diaphoresis, or palpitations. She denies any recent travel or sick contacts. Allergies: Penicillins, peach, strawberry, tomato Past Surgical History: None reported. Social History: Non smoker. No ETOH or recreational drug use. PCP: Dr. Hammer <Heaven Bae - Last Filed: 01/15/17 15:59> <Shannon Chou - Last Filed: 01/15/17 16:39> - General Chief Complaint: Pain Stated Complaint: PAIN Past History <Heaven Bae - Last Filed: 01/15/17 15:59> - Past Medical History Anemia: Yes Asthma: Yes Cancer: Yes (right breast) Cardiac Disorders: No CVA: No COPD: Yes CHF: No Dementia: No Diabetes: No GI Disorders: No Disorders: No HTN: Yes Hypercholesterolemia: No Liver Disease: No Suicide Attempt (Hx): No Seizures: No Thyroid Disease: No - Surgical History Abdominal Surgery: No Appendectomy: No Cardiac Surgery: No Cholecystectomy: No Lung Surgery: No Neurologic Surgery: No Orthopedic Surgery: No - Psycho/Social/Smoking Cessation Hx Anxiety: No Suicidal Ideation: No Smoking Status: Yes Smoking History: Former smoker Have you smoked in the past 12 months: No Number of Cigarettes Smoked Daily: 15 Information on smoking cessation initiated: No 'Breaking Loose' booklet given: 12/25/16 Hx Alcohol Use: No Drug/Substance Use Hx: No Substance Use Type: None Hx Substance Use Treatment: No <Shannon Chou - Last Filed: 01/15/17 16:39> - Past Medical History Allergies/Adverse Reactions: Allergies Allergy/AdvReac Type Severity Reaction Status Date / Time peach Allergy Unknown Verified 01/15/17 12:00 Penicillins Allergy Verified 01/15/17 12:00 strawberry Allergy Verified 01/15/17 12:00 tomato Allergy Verified 01/15/17 12:00 Home Medications: Ambulatory Orders Albuterol Sulfate Inhaler - [Ventolin HFA Inhaler -] 1 - 2 inh PO QID PRN Celecoxib 200 mg PO BID 04/29/15 Escitalopram Oxalate [Lexapro -] 10 mg PO DAILY 04/29/15 Gabapentin 600 mg PO TID 04/29/15 Loratadine 10 mg PO DAILY 04/29/15 Roflumilast [Daliresp] 500 mcg PO DAILY 04/29/15 Duloxetine HCl 30 mg PO HS 12/25/16 Fluticasone/Vilanterol [Breo Ellipta 100-25 Mcg INH] 1 each IH DAILY 12/25/16 Hydrochlorothiazide 25 mg PO AM 12/25/16 Diclofenac Sodium [Voltaren] 0 gm TP ASDIR 01/15/17 Levofloxacin [Levaquin] 500 mg PO DAILY 01/15/17 Metronidazole [Flagyl -] 500 mg PO TID 01/15/17 Review of Systems - Review of Systems Able to Perform ROS?: Yes Comments:: 01/15/17 13:02 GENERAL/CONSTITUTIONAL: Yes: +body aches. No fever or chills. No weakness. HEAD, EYES, EARS, NOSE AND THROAT: No change in vision. No ear pain or discharge. No sore throat. CARDIOVASCULAR: No chest pain or shortness of breath. RESPIRATORY: No cough, wheezing, or hemoptysis. GASTROINTESTINAL: Yes: +diarrhea. No nausea, vomiting, or constipation. GENITOURINARY: Yes: +increased urination with bowel movements. No dysuria, frequency, or change in urination. MUSCULOSKELETAL: Yes: +joint pain, +bone pain, +neck pain, +body aches. No joint or muscle swelling. SKIN: No rash NEUROLOGIC: No headache, vertigo, loss of consciousness, or change in strength/ sensation. ENDOCRINE: No increased thirst. No abnormal weight change. HEMATOLOGIC/LYMPHATIC: No anemia, easy bleeding, or history of blood clots. ALLERGIC/IMMUNOLOGIC: No hives or skin allergy. <CatalinoYaditracy - Last Filed: 01/15/17 15:59> *Physical Exam - Vital Signs Last Vital Signs Temp Pulse Resp BP Pulse Ox 97.8 F 86 20 98/66 99 01/15/17 11:36 01/15/17 11:36 01/15/17 11:36 01/15/17 11:36 01/15/17 11:36 - Physical Exam Comments: 01/15/17 13:03 GENERAL: Awake, alert, and fully oriented, in no acute distress HEAD: No signs of trauma EYES: PERRLA, EOMI, sclera anicteric, conjunctiva clear ENT: Auricles normal inspection, hearing grossly normal, nares patent, oropharynx clear without exudates. Moist mucosa NECK: Normal ROM, supple, no lymphadenopathy, JVD, or masses LUNGS: Breath sounds equal, clear to auscultation bilaterally. No wheezes, and no crackles HEART: Regular rate and rhythm, normal S1 and S2, no murmurs, rubs or gallops ABDOMEN: Mild tenderness Suprapubically and to the RLQ, but no guarding or rebound. Soft, normoactive bowel sounds. No masses EXTREMITIES: Diffuse joint tenderness. Normal range of motion, no edema. No clubbing or cyanosis. No cords or erythema. NEUROLOGICAL: Cranial nerves II through XII grossly intact. Normal speech, normal gait SKIN: Warm, Dry, normal turgor, no rashes or lesions noted. <Bae,Yaditracy - Last Filed: 01/15/17 15:59> - Vital Signs Last Vital Signs Temp Pulse Resp BP Pulse Ox 97.8 F 86 20 98/66 99 01/15/17 11:36 01/15/17 11:36 01/15/17 11:36 01/15/17 11:36 01/15/17 11:36 <Shannon Chou - Last Filed: 01/15/17 16:39> Heart Score/ECG Review - ECG Intrepretation Comment:: 01/15/17 16:37 sinus at 86, nl axis, nl interval, no acute st/t wave findings <Shannon Chou - Last Filed: 01/15/17 16:39> ED Treatment Course - LABORATORY CBC & Chemistry Diagram: 01/15/17 13:50 01/15/17 13:50 <Heaven Bae - Last Filed: 01/15/17 15:59> - LABORATORY CBC & Chemistry Diagram: 01/15/17 13:50 01/15/17 13:50 <Shannon Chou - Last Filed: 01/15/17 16:39> Medical Decision Making - Medical Decision Making 01/15/17 15:59 First call placed to Dr. Hammer at 15:58. Awaiting call back. <Heaven Bae - Last Filed: 01/15/17 15:59> - Medical Decision Making 01/15/17 13:20 a/p: 66yo female with joint pain today, also with mild abd pain, diarrhea, and recent abx use -labs -straight cath for ua -ua/ucx -stool sample needed for c diff given diarrhea and increased stool freq -recently admitted for sepsi -esr and crp for joint pain -pain cotnrol -ivf hydration 01/15/17 16:[address] Hammer - states she recommended the patient follow up with Dr. Blandon - pain management. [phone]. States she wants to see the patient in the office tomorrow. she can walk in at any time. This was discussed along with her lab work with the daughter and the patient. they verbalize understanding. Answered all questions. Pt feeling better, requesting to go home. Pt stable for d/c to home. <Shannon Chou - Last Filed: 01/15/17 16:39> *DC/Admit/Observation/Transfer - Attestations Scribe Attestion: 01/15/17 13:03 Documentation prepared by Heaven Bae, acting as medical staff specialist for Shannon Chou DO. <Heaven Bae - Last Filed: 01/15/17 15:59> - Discharge Dispostion Admit: No - Attestations Physician Attestion: 01/15/17 13:20 I, Dr. Shannon Chou DO, attest that this document has been prepared under my direction and personally reviewed by me in its entirety. I further attest, that it accurately reflects all work, treatment, procedures and medical decision -making performed by me. <Shannon Chou - Last Filed: 01/15/17 16:39> Diagnosis at time of Disposition: Arthralgia - Discharge Dispostion Disposition: HOME Condition at time of disposition: Stable - Referrals Referrals: Taty Hammer MD [Primary Care Provider] - Figueroa Blandon MD [Staff Physician] - - Patient Instructions Printed Discharge Instructions: DI for Joint Pain Additional Instructions: Please call Dr. Blandon - [phone] for pain management follow up. Please follow up with Dr. Hammer tomorrow. Please return to the ED with any further concerns.
[2017-01-15] MEDS ORDERED: morphine CARPU-JECT 4 MG/1 ML DISP.SYRIN IVPUSH ONE (12:56)
[2017-01-15] MEDS ORDERED: SODIUM CHLORIDE 0.9% 1000 ML INFUS.BAG IV ONE (12:56)
[2017-01-15] MEDS ORDERED: morphine CARPU-JECT 4 MG/1 ML DISP.SYRIN ONE (13:08)
[2017-01-15 14:01] LABS: BASOPHIL 1.6 % (0-2.0); EOSINOPHIL 2.8 % (0-4.5); MCH 31.8 pg (25.7-33.7); MCHC 33.5 g/dl (32.0-36.0); MEAN CELL VOLUME 94.7 fl (80-96); MEAN PLT VOLUME 7.7 fl (7.5-11.1); NEUTROPHILS 45.4 % (42.8-82.8); PLATELET COUNT 269 K/MM3 (134-434); RDW 14.6 % (11.6-15.6); WHITE BLOOD COUNT 11.9 K/mm3 (4.0-10.0)
[2017-01-15 14:06] LABS: URINE APPEARANCE CLEAR; URINE BILIRUBIN NEGATIVE (NEGATIVE); URINE BLOOD NEGATIVE (NEGATIVE); URINE COLOR LTYELLOW; URINE GLUCOSE (UA) NEGATIVE (NEGATIVE); URINE KETONE NEGATIVE (NEGATIVE); URINE LEUK ESTERASE NEGATIVE (NEGATIVE); URINE NITRITE NEGATIVE (NEGATIVE); URINE PROTEIN NEGATIVE (NEGATIVE); URINE UROBILINOGEN NEGATIVE mg/dL (0.2-1.0)
[2017-01-15 14:26] LABS: ALBUMIN 2.9 g/dl (3.4-5.0); ANION GAP 8 (8-16); BILIRUBIN,TOTAL 0.5 mg/dL (0.2-1.0); CALCIUM 9.3 mg/dL (8.5-10.1); CO2 27 mmol/L (21-32); CREATININE 1.1 mg/dL (0.55-1.02); GLUCOSE,RANDOM 89 mg/dL (74-106); SGPT/ALT 19 U/L (12-78)
[2017-01-15 14:27] LABS: ALK PHOS 87 U/L (45-117)
[2017-01-15 14:29] LABS: MAGNESIUM 2.1 mg/dL (1.8-2.4); SGOT/AST 26 U/L (15-37)
[2017-01-15 17:17] VITALS: BP 126/82; PULSE 88; TEMP 97.6
--- NOTE | 2017-01-19 09:54 | EKG ---
Test Reason : Blood Pressure : / mmHG Vent. Rate : 086 BPM Atrial Rate : 086 BPM P-R Int : 170 ms QRS Dur : 088 ms QT Int : 376 ms P-R-T Axes : 062 002 041 degrees QTc Int : 449 ms NORMAL SINUS RHYTHM Confirmed by LESLY STARK MD ([id number]) on 01/19/2017 9:54:10 AM Referred By: Confirmed By:LESLY STARK MD
== END 2017-01-15 17:39 | disposition home or self-care (01) ==
LOC: JER 11:36
PROC: 3E033NZ Introduction of Analgesics, Hypnotics, Sedatives into Peripheral Vein, Percutaneous Approach (ICD-10-PCS; principal; 2017-01-15)
DX: M25.50 Pain in unspecified joint (principal); M19.90 Unspecified osteoarthritis, unspecified site; G62.89 Other specified polyneuropathies; I10 Essential (primary) hypertension; J44.9 Chronic obstructive pulmonary disease, unspecified; J45.909 Unspecified asthma, uncomplicated; F33.2 Major depressive disorder, recurrent severe without psychotic features; Z85.3 Personal history of malignant neoplasm of breast; Z87.891 Personal history of nicotine dependence
CPT/HCPCS: 36415; 80053; 81003; 83735; 85025; 85651; 87086; 93005; 93010; 96374; 99284-25

== ENCOUNTER → 2018-01-08 | Emergency (ER) | payer OTHER ==
[~2018-01-08] MED LIST: ACETAMINOPHEN 325 MG TABLET (FP) PO ONE
[2018-01-08 18:51] VITALS: BP 132/60; PULSE 100; TEMP 97.9; BMI 54.9
--- NOTE | 2018-01-08 20:25 | PDOC ---
History of Present Illness - General Chief Complaint: Back Pain Stated Complaint: PAIN Time Seen by Provider: 01/08/18 19:40 History Source: Patient, Family Exam Limitations: No Limitations - History of Present Illness Initial Comments: 01/08/18 20:05 The patient is a 67F with a PMH of osteoarthritis, polyneuropathy, severe major depressive disorder, hypertension, COPD, and asthma who presents to the ER with 3 days of pain under her breasts and pannus. She describes raw skin and pain under her breasts and pannus. She denies discharge or foul smell. She admits to fevers and chills but denies CP, SOB, numbness, tingling, or weakness. Past History - Past Medical History Allergies/Adverse Reactions: Allergies Allergy/AdvReac Type Severity Reaction Status Date / Time peach Allergy Unknown Verified 01/08/18 18:47 Penicillins Allergy Verified 01/08/18 18:47 strawberry Allergy Verified 01/08/18 18:47 tomato Allergy Verified 01/08/18 18:47 Home Medications: Ambulatory Orders Atorvastatin Ca [Lipitor] 20 mg PO HS 12/25/17 Celecoxib 200 mg PO BID 12/25/17 Diazepam [Valium] 5 mg PO DAILY #5 tablet MDD 1 12/25/17 Duloxetine HCl 30 mg PO HS 12/25/17 Escitalopram Oxalate [Lexapro -] 10 mg PO DAILY 12/25/17 Gabapentin 600 mg PO TID 12/25/17 Hydrochlorothiazide 25 mg PO DAILY 12/25/17 Loratadine 10 mg PO DAILY 12/25/17 Oxycodone HCl/Acetaminophen [Oxycodone-Acetaminophen 5-325] 1 each PO PRN PRN Potassium Chloride 20 meq PO DAILY 12/25/17 Sulfamethoxazole/Trimethoprim [Bactrim Ds -] 1 tab PO BID #20 tablet 01/08/18 Anemia: Yes Asthma: Yes Cancer: Yes (right breast) Cardiac Disorders: No CVA: No COPD: Yes CHF: No Dementia: No Diabetes: No GI Disorders: No Disorders: No HTN: Yes Hypercholesterolemia: No Liver Disease: No Seizures: No Thyroid Disease: No - Surgical History Abdominal Surgery: No Appendectomy: No Cardiac Surgery: No Cholecystectomy: No Lung Surgery: No Neurologic Surgery: No Orthopedic Surgery: No - Immunization History Immunization Up to Date: Yes - Suicide/Smoking/Psychosocial Hx Smoking Status: Yes Smoking History: Never smoked Have you smoked in the past 12 months: No Number of Cigarettes Smoked Daily: 20 'Breaking Loose' booklet given: 12/25/16 Hx Alcohol Use: No Drug/Substance Use Hx: No Substance Use Type: None Hx Substance Use Treatment: No Review of Systems - Review of Systems Able to Perform ROS?: Yes Comments:: 01/08/18 21:38 GENERAL/CONSTITUTIONAL: Positive for fevers and chills. No weakness. HEAD, EYES, EARS, NOSE AND THROAT: No change in vision. No ear pain or discharge. No sore throat. CARDIOVASCULAR: No chest pain, palpitations, or lightheadedness. RESPIRATORY: No cough, wheezing, shortness of breath, or hemoptysis. GASTROINTESTINAL: No nausea, vomiting, diarrhea, constipation, or abdominal pain. GENITOURINARY: No dysuria, frequency, hematuria, or change in urination. MUSCULOSKELETAL: No new joint or muscle swelling or pain. No new neck or back pain. SKIN: Positive for rash under breasts and pannus. NEUROLOGIC: No headache, numbness, tingling, focal weakness, loss of consciousness, or change in strength/sensation. ENDOCRINE: No increased thirst. No abnormal weight change. HEMATOLOGIC/LYMPHATIC: No anemia, easy bleeding, or history of blood clots. ALLERGIC/IMMUNOLOGIC: No hives or skin allergy. Is the patient limited Lao proficient: No *Physical Exam - Vital Signs Last Vital Signs Temp Pulse Resp BP Pulse Ox 97.9 F 100 H 18 132/60 97 01/08/18 18:47 01/08/18 18:47 01/08/18 18:47 01/08/18 18:47 01/08/18 18:47 - Physical Exam Comments: 01/08/18 21:40 GENERAL: Well developed, well nourished. Awake and alert. No acute distress. HEENT: Normocephalic, atraumatic. Hearing grossly normal. Moist mucous membranes. PERRLA, EOMI. No conjunctival pallor. Sclera are non-icteric. NECK: Supple. Full ROM. CARDIOVASCULAR: Regular rate and rhythm. No murmurs, rubs, or gallops. PULMONARY: No evidence of respiratory distress. Lungs clear to auscultation bilaterally. No wheezing, rales or rhonchi. ABDOMINAL: Soft. Protuberant. Non-tender. Non-distended. No rebound or guarding. GENITOURINARY: No CVA tenderness bilaterally. MUSCULOSKELETAL: Normal range of motion at all joints. No bony deformities or tenderness. EXTREMITIES: No cyanosis. No clubbing. 2-3+ pitting edema in b/l LE. No calf tenderness. SKIN: Erythematous and raw skin under b/l breasts, under b/l pannus, and in perineum - tender but not warm to touch. Otherwise, warm and dry. Normal capillary refill. No rashes. No jaundice. NEUROLOGICAL: Alert, awake, appropriate. Cranial nerves 2-12 grossly intact. Normal speech. PSYCHIATRIC: Cooperative. Good eye contact. Appropriate mood and affect. Medical Decision Making - Medical Decision Making 01/08/18 21:41 The patient is a 67F with an extensive PMH who presents to the ER with raw skin under breasts, in pannus, and in perineum. Pt is well appearing and rashes do not have crusts or discharge on them. Will treat for cellulitis. *DC/Admit/Observation/Transfer Diagnosis at time of Disposition: Cellulitis Qualifiers: Site of cellulitis: trunk Site of cellulitis of trunk: perineum Qualified Code( s): L03.315 - Cellulitis of perineum - Discharge Dispostion Disposition: HOME Condition at time of disposition: Stable Decision to Admit order: No - Prescriptions Prescriptions: Sulfamethoxazole/Trimethoprim [Bactrim Ds -] 1 tab PO BID #20 tablet - Referrals Referrals: Dave Coleman MD [Primary Care Provider] - - Patient Instructions Printed Discharge Instructions: Skin Wound Additional Instructions: Please follow up with your primary care physician in 2-3 days. Please return to the ER if you have any signs or symptoms of chest pain, shortness of breath, uncontrollable fever, chills, nausea, vomiting, numbness, tingling, or weakness in any part of your body, changes in vision, or slurred speech. Please take your medications as prescribed. Please return to the ER if symptoms persist, worsen, or new symptoms arise. - Post Discharge Activity
--- NOTE | 2018-01-08 21:41 | PDOC ---
Attending Attestation - Resident Resident Name: RissaSebastian - ED Attending Attestation I have performed the following: I have examined & evaluated the patient, The case was reviewed & discussed with the resident, I agree w/resident's findings & plan - HPI HPI: 01/08/18 23:40 Truss 67F with a PMH of osteoarthritis, polyneuropathy, severe major depressive disorder, hypertension, COPD, and asthma presenting with skin rash and irritation x 3 days under breast and abdomen. Patient states she went to a pharmacist who prescribed her a cortisone cream for her rashes. Patient reports she has been sweating around her abdomen and breast and has been using pads. Patient is endorsing chills but no fever. The patient denies chest pain, shortness of breath, headache, and dizziness. Denies fever, nausea, vomit, diarrhea, and constipation. Denies dysuria, frequency, urgency, and hematuria. Allergies: NKA Past surgical history: None reported. Social history: No reported alcohol, drug or cigarette use. PCP: Dr. Dave Coleman - Physicial Exam PE: 01/08/18 21:51 NAD, well appearing, MMM, nl conjunctiva, anicteric; neck supple. lungs clear, RRR, abdomen soft nontender, morbidly obese. RANGEL x4. +erythematous rash and raw skin under bilateral breasts, abdominal pannus and perineum, no discharge or oozing. mildly tender to palp. no lesions or vesicles or crusting. no desquamitization of skin - Medical Decision Making 01/08/18 21:49 MDM: Truss 67F with a PMH of osteoarthritis, polyneuropathy, severe major depressive disorder, hypertension, COPD, and asthma presenting with skin rash and irritation x 3 days under breast and abdomen and perineum. Subjective chills. Has been applying topical steroid cream, which is worsening the condition. vitals with HR in 100s, no fever rectally exam with skin irritation and erythematous areas under pannus, consistent with skin infection vs. superimposed infection. clinically doubt TEN/SJS or TSS. no palp abscess. nontoxic appearing. on exam - pt is poorly cooperative and frustrated with reexamination by attending physician. demanded to leave, refusing to get undressed and get evaluated. Pt eloped prior to discharge paperwork, with plan for Bactrim course x 10 days and skin hygiene. did verbalize to pt and daughter at bedside for proper cleaning and hygiene, avoid steroid cream over the area. antibiotics for possible superimposed infection. return precautions were verbalized. will attempt clinical call back for reeval and bactrim abx sent over to pharmacy. 01/08/18 21:52 01/08/18 23:40
--- NOTE | 2018-01-09 20:20 | PDOC ---
Patient Follow-up (Call Back) - Post ED Follow - Up Chief Complaint: Rash Condition at time of discharge: Stable Disposition at time of original discharge: HOME - Disposition Rx Needed: No Additional Instructions/Notes: Pt had left prior to formal discharge instructions and discharge paperwork. I have discussed her discharge instructions discussed her current status. She states she feels "a little better" and has received the antibiotic that I prescribed for her. She knows to return if any of her symptoms worsen.
== END | disposition home or self-care (01) ==
LOC: JER 17:54
DX: L03.315 Cellulitis of perineum (principal); J44.9 Chronic obstructive pulmonary disease, unspecified; I10 Essential (primary) hypertension; Z85.3 Personal history of malignant neoplasm of breast
CPT/HCPCS: 99281-25

== ENCOUNTER 2018-10-31 23:23 | Emergency (ER) | payer OTHER ==
[2018-10-31 23:43] VITALS: BP 119/71; PULSE 92; TEMP 97.6; BMI 47.0
--- NOTE | 2018-11-01 01:06 | PDOC ---
History of Present Illness - General Chief Complaint: Injury Stated Complaint: FALL Time Seen by Provider: 11/01/18 01:05 History Source: Patient Exam Limitations: No Limitations - History of Present Illness Initial Comments: Kristy Barajas is a 68 yo F w a pmh of osteoarthritis, polyneuropathy, severe major depressive disorder, hypertension, COPD, and asthma who presents to the [facility] ER BIB[facility] after she fell down. She states it was a mechanical fall and she tripped while she was peeing in the bathroom. When she woke up she states she was confused and thought it was morning so she went to go pee and open the door to let her aid in. While she was peeing she lost her balance and fell down. She says her knees hurt now and her whole body is in pain from the fall. She thinks she banged her head by accident but did not experience any LOC. Only blood thinner patient takes is celecoxib. PSH: None reported. Social history: No reported alcohol, drug or cigarette use. PCP: Dr. Dave Coleman Allergies: Penicillins, strawberry, tomato Past History - Past Medical History Allergies/Adverse Reactions: Allergies Allergy/AdvReac Type Severity Reaction Status Date / Time peach Allergy Unknown Verified 10/31/18 23:42 Penicillins Allergy Verified 10/31/18 23:42 strawberry Allergy Verified 10/31/18 23:42 tomato Allergy Verified 10/31/18 23:42 Home Medications: Ambulatory Orders Atorvastatin Ca [Lipitor] 20 mg PO HS 12/25/17 Celecoxib 200 mg PO BID 12/25/17 Diazepam [Valium] 5 mg PO DAILY #5 tablet MDD 1 12/25/17 Duloxetine HCl 30 mg PO HS 12/25/17 Escitalopram Oxalate [Lexapro -] 10 mg PO DAILY 12/25/17 Gabapentin 600 mg PO TID 12/25/17 Hydrochlorothiazide 25 mg PO DAILY 12/25/17 Loratadine 10 mg PO DAILY 12/25/17 Oxycodone HCl/Acetaminophen [Oxycodone-Acetaminophen 5-325] 1 each PO PRN PRN Potassium Chloride 20 meq PO DAILY 12/25/17 Sulfamethoxazole/Trimethoprim [Bactrim Ds -] 1 tab PO BID #20 tablet 01/08/18 Anemia: Yes Asthma: Yes Cancer: Yes (right breast) Cardiac Disorders: No CVA: No COPD: Yes CHF: No Dementia: No Diabetes: No GI Disorders: No Disorders: No HTN: Yes Hypercholesterolemia: No Liver Disease: No Seizures: No Thyroid Disease: No - Surgical History Abdominal Surgery: No Appendectomy: No Cardiac Surgery: No Cholecystectomy: No Lung Surgery: No Neurologic Surgery: No Orthopedic Surgery: No - Immunization History Immunization Up to Date: Yes - Suicide/Smoking/Psychosocial Hx Smoking Status: Yes Smoking History: Unknown if ever smoked Have you smoked in the past 12 months: No Number of Cigarettes Smoked Daily: 20 Information on smoking cessation initiated: No 'Breaking Loose' booklet given: 12/25/16 Hx Alcohol Use: No Drug/Substance Use Hx: No Substance Use Type: None Hx Substance Use Treatment: No Review of Systems - Review of Systems Able to Perform ROS?: Yes Comments:: CONSTITUTIONAL: Absent: fever, no chills, no fatigue EYES: Absent: visual changes ENT: Absent: ear pain, no sore throat CARDIOVASCULAR: Absent: chest pain, no palpitations RESPIRATORY: Absent: cough, no SOB GI: Absent: abdominal pain, no nausea, no vomiting, no constipation, no diarrhea GENITOURINARY: Absent: dysuria, no frequency, no hematuria MUSKULOSKELETAL: Present: Back pain, arthralgia Absent: no myalgia SKIN: Absent: rash NEURO: Absent: headache *Physical Exam - Vital Signs Last Vital Signs Temp Pulse Resp BP Pulse Ox 97.6 F 92 H 20 119/71 100 10/31/18 23:42 10/31/18 23:42 10/31/18 23:42 10/31/18 23:42 10/31/18 23:42 - Physical Exam Comments: GENERAL: Patient is awake, alert and in no acute distress. Speech is clear and appropriate. HEAD: Atraumatic and nontender. HEENT: Pupils are equal round and reactive to light, extraocular movements are intact. The tympanic membranes are clear, no hemotympanum. No facial deformity. No facial bone tenderness or step-off. No nasal septal hematoma. The oropharynx is clear. NECK: The trachea is midline, there is no stridor. There is no midline cervical spine tenderness, full range of motion of neck. CHEST: Non-tender, no ecchymosis or abrasions. Equal chest wall expansion bilaterally. No flail segments. Lungs are clear to auscultation bilaterally. CARDIOVASCULAR: S1-S2, regular rate and rhythm. No murmurs or rubs. ABDOMEN: Soft, nontender, nondistended. Bowel sounds are normoactive. There is no abdominal or flank ecchymosis. BACK/PELVIS: There is no midline thoracic or lumbosacral spine tenderness or step-off. Pelvis is stable and nontender. EXTREMITIES: There is no extremity deformity or joint swelling. bilateral knee TTP. 2+ distal pulses throughout. NEURO: Alert and oriented x3. Cranial nerves II through XII are intact. 5 out of 5 motor strength x4 extremities. No gross sensory deficits. SKIN: No abrasions, hematomas, lacerations. PSYCH: Affect is appropriate ED Treatment Course - RADIOLOGY Radiograph Interpretation: Head CT: There is no acute intra-or extra-axial mass or fluid collections. There is no intracranial hemorrhage or infarct. There is no midline shift or mass effect . There is no hydrocephalus. The brain parenchyma is intact. The skull is intact. The visualized paranasal sinuses are clear. The bilateral mastoid air cells are clear. IMPRESSION: NO ACUTE INTRACRANIAL ABNORMALITY. Cervical CT: The vertebral bodies are intact without acute fracture or subluxation. There is no prevertebral soft tissue swelling. Multilevel disc space degenerative changes are seen with disc space narrowing and osteophytes. Mild to moderate degenerative changes are seen throughout the facet joints as well. There is disc bulging with evidence of a moderate central stenosis at C5-6. There is also significant bilateral neuroforaminal stenosis at this level. Suspect a small disc herniation at this level as well. Osteophytes and disc bulging cause a central as well as right- sided neuroforaminal stenosis at C4-5. Osteophytes also cause moderate right-sided neuroforaminal stenosis at C3-4. There is no acute bony abnormality. IMPRESSION: Moderate degenerative changes throughout the cervical spine noted. No acute fracture or subluxation is seen. Pelvis CT: The intrapelvic structures are unremarkable. No mass or fluid collection is seen. The osseous structures of the pelvis are intact. There is severe osteoarthritis of the left hip with complete loss of the joint space, subchondral cysts and large osteophytes. There is mild superior subluxation of the acetabulum and femoral head. Moderate osteophytes of the right hip is also seen with narrowing and subchondral cyst. There is also moderate degenerative changes of both sacral-like joints. No fracture or dislocation is seen in the pelvis or hip. The soft tissues are unremarkable. There is mild diverticulosis noted in the colon. IMPRESSION: Severe osteoarthritis of the left hip and moderate osteoarthritis of the right hip. No pelvic or hip fracture is seen. Medical Decision Making - Medical Decision Making Kristy Barajas is a 68 yo F w a pmh of osteoarthritis, polyneuropathy, severe major depressive disorder, hypertension, COPD, and asthma who presents to the [facility] ER BIB[facility] after she fell down. She states it was a mechanical fall and she tripped while she was peeing in the bathroom. When she woke up she states she was confused and thought it was morning so she went to go pee and open the door to let her aid in. While she was peeing she lost her balance and fell down. She says her knees hurt now and her whole body is in pain from the fall. She thinks she banged her head by accident but did not experience any LOC. Only blood thinner patient takes is celecoxib. Vital Signs Temp Pulse Resp BP Pulse Ox 97.6 F 92 H 20 119/71 100 10/31/18 23:42 10/31/18 23:42 10/31/18 23:42 10/31/18 23:42 10/31/18 23:42 DDx IBNLT: Mechanical fall, brain bleed, cervical fx, pelvis fx, knee injury, Uti Plan: urine, ekg, ct, xr, analgesia, re-assess. Patient was seen ambulating around the ER to go and use the bathroom. She feels better after pain meds and requests to be dishcarged back home. - Will send patient home with PCP fu *DC/Admit/Observation/Transfer Diagnosis at time of Disposition: Fall - Discharge Dispostion Disposition: HOME Condition at time of disposition: Improved Decision to Admit order: No - Referrals Referrals: Dave Coleman MD [Primary Care Provider] - - Patient Instructions Printed Discharge Instructions: How to Prevent Falls Additional Instructions: You came into the ER after you fell down. We did a cat scan of your head, neck and pelvis and found no abnormalities. It is important for you to follow up with your primary care doctor in the next 3 to 5 days. Come back to the ER immediately if your pain worsens or you have any other new or worsening concerns. Thank you for coming to the [facility] ER. We hope you feel better soon! Print Language: MACANESE - Post Discharge Activity
[2018-11-01] MEDS ORDERED: SODIUM CHLORIDE 1,000 ML IV ONE (01:15)
[2018-11-01] MEDS ORDERED: ACETAMINOPHEN 1000 MG/100 ML VIAL (NON FORMULARY) IVPB ONE (01:17)
[2018-11-01] MEDS ORDERED: morphine CARPU-JECT 2 MG/1 ML DISP.SYRIN IM ONE (02:23)
[2018-11-01] MEDS ORDERED: morphine SULFATE 4 MG/ML VIAL ONE (02:25)
--- NOTE | 2018-11-01 02:30 | PDOC ---
Attending Attestation - Resident Resident Name: Case Brantley - ED Attending Attestation I have performed the following: I have examined & evaluated the patient, The case was reviewed & discussed with the resident, I agree w/resident's findings & plan, Exceptions are as noted - HPI HPI: 11/01/18 02:26 68 F with h/o OA, polyneuropathy, MDD, HTN, COPD, asthma, presenting to ED after falling. Pt states she was going to the bathroom and tripped. Denies headstrike/LOC. Denies lightheadedness/CP/SOB/palpitations. Pt states that she was unable to get up after falling. Denies GARCIA/N/V. Upon arrival to ED, pt initially complained of bodyaches all over. However, at time of my evaluation, pt now denies any pain whatsoever. - Physicial Exam PE: 11/01/18 02:29 GENERAL: Awake, alert, and fully oriented, in no acute distress. HEAD: No signs of trauma EYES: PERRLA, EOMI, sclera anicteric, conjunctiva clear ENT: Auricles normal inspection, hearing grossly normal, nares patent, oropharynx clear without exudates. Moist mucosa NECK: Nontender, no stepoffs, Normal ROM, supple, no lymphadenopathy, JVD, or masses LUNGS: Breath sounds equal, clear to auscultation bilaterally. No wheezes, and no crackles HEART: Regular rate and rhythm, normal S1 and S2, no murmurs, rubs or gallops ABDOMEN: Soft, nontender, normoactive bowel sounds. No guarding, no rebound. No masses EXTREMITIES: Normal range of motion, no edema. No clubbing or cyanosis. No cords, erythema, or tenderness NEUROLOGICAL: Cranial nerves II through XII intact. 5/5 strength and sensation in all extremities, Normal speech, normal gait, normal cerebellar function SKIN: Warm, Dry, normal turgor, no rashes or lesions noted. - Medical Decision Making 11/01/18 02:29 68 F with mechanical fall, initially complaining of pain all over, but now denies any pain at all. No evidence of traumatic injury on exam. No bony tenderness or deformity. Pt able to ambulate in ED to bathroom without difficulty. However, given pt's morbid obesity, will obtain CT head and C-spine. - CT head/c-spine 11/01/18 05:43 CTs negative for acute process Pt ambulatory in ED with steady gait Pt is well appearing, with normal vitals. Clinically stable for DC at this time. I discussed the physical exam findings, ancillary test results and final diagnoses with the patient. I answered all of the patient's questions. The patient was satisfied with the care received and felt comfortable with the discharge plan and treatment plan. The patient agrees to follow up with the primary care physician within 24-72 hours.
[2018-11-01] MEDS ORDERED: oxyCODONE HCL 5 MG TABLET PO ONE (03:09)
[2018-11-01] MEDS ORDERED: HYDROmorphone HCL CARPU-JECT 2 MG/1 ML DISP.SYRIN IM ONE (03:27)
[2018-11-01] MEDS ORDERED: HYDROmorphone HCl 2 MG/ML VIAL ONE (03:51)
[2018-11-01] MEDS ORDERED: oxyCODONE HCL 5 MG TABLET ONE (03:51)
--- NOTE | 2018-11-01 11:31 | EKG ---
Test Reason : Blood Pressure : / mmHG Vent. Rate : 093 BPM Atrial Rate : 093 BPM P-R Int : 158 ms QRS Dur : 086 ms QT Int : 360 ms P-R-T Axes : 047 002 044 degrees QTc Int : 447 ms POOR DATA QUALITY, INTERPRETATION MAY BE ADVERSELY AFFECTED NORMAL SINUS RHYTHM NONSPECIFIC ST ABNORMALITY WHEN COMPARED WITH ECG OF 25-DEC-2017 11:22, NO SIGNIFICANT CHANGE WAS FOUND Confirmed by LESLY STARK MD ([id number]) on 11/01/2018 11:31:08 AM Referred By: Confirmed By:LESLY STARK MD
== END 2018-11-01 05:57 | disposition home or self-care (01) ==
LOC: JER 23:23
PROC: 3E033NZ Introduction of Analgesics, Hypnotics, Sedatives into Peripheral Vein, Percutaneous Approach (ICD-10-PCS; principal; 2018-10-31)
PROC: 3E033NZ Introduction of Analgesics, Hypnotics, Sedatives into Peripheral Vein, Percutaneous Approach (ICD-10-PCS; 2018-10-31)
DX: S09.8XXA Other specified injuries of head, initial encounter (principal); W18.39XA Other fall on same level, initial encounter; Y93.89 Activity, other specified; Y92.038 Other place in apartment as the place of occurrence of the external cause; Y99.8 Other external cause status; I10 Essential (primary) hypertension; J44.9 Chronic obstructive pulmonary disease, unspecified; J45.909 Unspecified asthma, uncomplicated; D64.9 Anemia, unspecified; M19.90 Unspecified osteoarthritis, unspecified site; Z85.3 Personal history of malignant neoplasm of breast
CPT/HCPCS: 70450-TC; 72125-TC; 72192-TC; 93005; 93010; 99281-25

== ENCOUNTER 2021-08-12 18:43 | Emergency (ER) | payer BC, OTHER ==
[2021-08-12 19:12] VITALS: TEMP 96.9; BMI 44.6
[2021-08-12] MEDS ORDERED: ACETAMINOPHEN 1000 MG/100 ML BAG IVPB ONE (21:45)
[2021-08-12] MEDS ORDERED: ACETAMINOPHEN INJECTION 100 ML IVPB ONE (22:01)
[2021-08-12] MEDS ORDERED: LACTATED RINGERS SOLUTION 1000 ML INFUS.BAG IV ONE (22:04)
[2021-08-12] MEDS ORDERED: CIPROFLOXACIN 400 MG/D5W 400 MG/200 ML IVPB IVPB ONE (22:04)
[2021-08-12 23:02] LABS: BASO % 1.4 % (0-2.0); EOS % 2.8 % (0-4.5); HEMATOCRIT 36.9 % (32.4-45.2); HEMOGLOBIN 12.5 GM/dL (10.7-15.3); LYMPH % 46.2 % (8-40); MCH 31.6 pg (25.7-33.7); MCHC 33.8 g/dl (32.0-36.0); MEAN CELL VOLUME 93.4 fl (80-96); MEAN PLT VOLUME 7.8 fl (7.5-11.1); MONO % 5.9 % (3.8-10.2); NEUT % 43.7 % (42.8-82.8); PLATELET COUNT 222 10^3/uL (134-434); RBC 3.95 M/mm3 (3.60-5.2); WHITE BLOOD COUNT 10.6 K/mm3 (4.0-10.0)
[2021-08-12] MEDS ORDERED: CEFTRIAXONE 1,000 MG in DEXTROSE 5%-WATER - 50 ML IVPB ONE (23:20)
[2021-08-12] MEDS ORDERED: KETOROLAC TROMETHAMINE 15 MG/ML VIAL IVPUSH ONE (23:20)
[2021-08-12 23:25] LABS: ALBUMIN 3.1 g/dl (3.4-5.0); BLOOD UREA NITROGEN 10.2 mg/dL (7-18); CALCIUM 9.9 mg/dL (8.5-10.1)
[2021-08-12 23:29] LABS: BILIRUBIN,TOTAL 0.5 mg/dL (0.2-1); CREATININE 1.1 mg/dL (0.55-1.3); TOT PROT 7.2 g/dl (6.4-8.2)
[2021-08-12] MEDS ORDERED: KETOROLAC TROMETHAMINE 15 MG/ML VIAL ONE (23:35)
[2021-08-12] MEDS ORDERED: CEFTRIAXONE 1 GM/50 ML BAG ONE (23:35)
[2021-08-13 02:17] LABS: URINE APPEARANCE CLOUDY; URINE BILIRUBIN NEGATIVE (NEGATIVE); URINE COLOR DK YELLOW; URINE GLUCOSE (UA) NEGATIVE (NEGATIVE); URINE KETONE NEGATIVE (NEGATIVE); URINE LEUK ESTERASE NEGATIVE (NEGATIVE); URINE NITRITE NEGATIVE (NEGATIVE); URINE PROTEIN NEGATIVE (NEGATIVE)
[2021-08-13 04:20] VITALS: BP 140/64; PULSE 80
== END 2021-08-13 04:29 | disposition home or self-care (01) ==
LOC: JER 18:43
PROC: 3E033GC Introduction of Other Therapeutic Substance into Peripheral Vein, Percutaneous Approach (ICD-10-PCS; principal; 2021-08-12)
DX: R10.9 Unspecified abdominal pain (principal)
CPT/HCPCS: 36415; 74176-TC; 80053; 81003; 83605; 83690; 84484; 85025; 87086; 93005; 93010; 99285-25